=== PATIENT | male | born 1990 | race Caucasian/White ===

== ENCOUNTER 2016-06-20 15:16 | Emergency (ER) | payer OTHER | END 2016-06-20 20:43 | disposition home or self-care (01) | LOC: D.ER 15:16 | DX: K02.9 Dental caries, unspecified (principal); K08.89 Other specified disorders of teeth and supporting structures; K05.10 Chronic gingivitis, plaque induced; J45.909 Unspecified asthma, uncomplicated ==

== ENCOUNTER 2017-05-02 01:46 | Emergency (ER) | payer OTHER | END 2017-05-02 02:28 | disposition home or self-care (01) | LOC: D.ER 01:46 | DX: K02.9 Dental caries, unspecified (principal); K08.89 Other specified disorders of teeth and supporting structures; K05.10 Chronic gingivitis, plaque induced; F17.200 Nicotine dependence, unspecified, uncomplicated ==